=== PATIENT | male | born 1970 | race Caucasian/White ===

== ENCOUNTER → 2019-05-30 | Outpatient (CLI) | payer BC ==
--- NOTE | 2019-05-31 09:54 | KCIC ---
EXAM: MRI RIGHT KNEE DATE: 05/30/2019 5:00 PM CLINICAL INDICATION: Right knee pain, possible meniscal tear. COMPARISON: Radiographs 04/22/2019 TECHNIQUE: Multiplanar, multisequence MRI of the right knee was performed without contrast. FINDINGS: No significant knee joint effusion. No Clarke's cyst. ACL and PCL are intact. Mild increased signal about the MCL likely reactive from adjacent meniscal tear. The fibular collateral ligament, biceps femoris, IT band and popliteus are intact. Extensor mechanism is intact. Neutral patellar tracking. Medial meniscus: There is a complex tear of the medial meniscus with radial tear at the body segment extending as an oblique undersurface tear into the posterior horn. No definite meniscocapsular separation. Mild meniscal extrusion measures approximately 4 mm. Lateral meniscus: Intact No evidence for fracture or osteonecrosis. Chondral thinning with intermittent regions of full-thickness cartilage defects are seen within the medial compartment with subchondral edema is seen at the weightbearing surface of the medial femoral condyle and medial tibial plateau. IMPRESSION: 1. Complex tear medial meniscus with oblique and radial components. 2. Medial compartment predominant osteoarthritis. Electronically signed by: Krish Moore MD (05/31/2019 9:52 AM) [id number]
== END | disposition home or self-care (01) ==
LOC: KCIC MRI 16:29
PROVIDERS: ATTEND Orthopaedic Surgery Sports Medicine
DX: S83.231A Complex tear of medial meniscus, current injury, right knee, initial encounter (principal); S83.241A Other tear of medial meniscus, current injury, right knee, initial encounter; M17.11 Unilateral primary osteoarthritis, right knee; X58.XXXA Exposure to other specified factors, initial encounter; Y93.89 Activity, other specified; Y92.89 Other specified places as the place of occurrence of the external cause; Y99.8 Other external cause status
CPT/HCPCS: 73721